=== PATIENT | male | born 1940 | race Caucasian/White ===

== ENCOUNTER 2018-04-17 09:02 | Emergency (ER) | payer MEDICARE, BC, SELFPAY ==
[2018-04-17] VITALS (13 sets, daily range): BP systolic 067–182; BP diastolic 77–91; PULSE 70–99; RESP 16–24; TEMP 36.5; O2SAT 98–100; BMI 23.0
--- NOTE | 2018-04-17 09:05 | ED.CHESTPAIN ---
HPI - Chest Pain General Chief Complaint: Chest Pain Stated Complaint: having a heart problem Time Seen by Provider: 04/17/18 09:05 Source: patient Mode of arrival: ambulatory Limitations: no limitations History of Present Illness HPI narrative: Patient is a 77-year-old male with known coronary artery disease. In February of last year he underwent a coronary artery bypass graft at [facility] in [place]. He states that things went well. He states he did not have a heart attack prior to this. He states that he went right to the surgery after a cardiac catheterization. He is currently on Plavix. He does not have a local assessment nurse practitioner but does have a local primary care doctor. He states that this morning he got up and ate some breakfast. Had some nausea afterwards. He states that since then he has continue to did not feel well. He does have retrosternal chest pain. Not worse with palpation. Or breathing. He states that he thought maybe he was in atrial fibrillation this morning because they told him to watch for these types of symptoms. He called a cardiac nurse who informed him to come to the emergency department. Related Data Allergies Allergy/AdvReac Type Severity Reaction Status Date / Time amlodipine [From [facility]] Allergy Verified 04/17/18 09:21 atenolol Allergy Verified 04/17/18 09:20 hydrochlorothiazide Allergy Verified 04/17/18 09:21 Sulfa (Sulfonamide Allergy Verified 04/17/18 09:21 Antibiotics) Review of Systems Constitutional Reports fatigue, Denies fever(s) and Reports malaise Cardiovascular Reports chest pain, Reports irregular heart rhythm, Reports palpitations and Reports dyspnea Respiratory Reports dyspnea Gastrointestinal Gastrointestinal: Denies abdominal pain, Reports nausea and Denies vomiting Genitourinary Denies dysuria Musculoskeletal Denies myalgias and Denies arthralgias Integumentary/Breasts Denies rash Neurologic Denies behavioral changes Psychiatric Denies behavioral changes Endocrine Reports fatigue and Reports palpitations Hematologic/Lymphatic Comments: On Plavix PFSH Medical History Coronary artery disease (Acute) Diabetes (Acute) Surgical History History of cholecystectomy (Acute) Hx of CABG (Acute) Social History marital status: lives independently: Yes Social History marital status: lives independently: Yes Exam Initial Vital Signs Initial Vital Signs: Vital Signs Temperature 97.7 F 04/17/18 09:07 Pulse Rate 99 H 04/17/18 09:07 Respiratory Rate 24 04/17/18 09:07 Blood Pressure 182/90 H 04/17/18 09:07 Pulse Oximetry 100 04/17/18 09:07 Const General: cooperative, No comfortable, well groomed and ill appearing Orientation: alert, awake and oriented x3 HENMT Head: normal to inspection and normocephalic Chest Other: Well-healed midline surgical scar consistent with his history of CABG Resp Effort & Inspection: tachypneic Auscultation: clear to auscultation bilaterally Cardio Rate: tachycardic Rhythm: regular rhythm Heart Sounds: murmur Pulses: radial pulses present GI Inspection: non-distended Palpation: soft, No firm and No tender Skin Other: Well-healed midline surgical scar also well-healed midline right upper quadrant scar consistent with his history of coronary artery bypass graft and cholecystectomy Neuro General: alert, awake and oriented x3 Extrem General: normal to inspection and capillary refill normal Psych Appearance: grossly normal and well kempt Course Orders Ordered: ED Orders 04/17/18 09:00 B Type Natriuretic Peptide Stat Complete Blood Count AUTO DIFF Stat Comprehensive Metabolic Panel Stat Partial Thromboplastin Time Stat Prothrombin Time INR Stat Troponin I Stat 04/17/18 09:06 XR chest 1V Stat 04/17/18 09:07 EKG-12 Lead Stat 04/17/18 09:37 EKG-12 Lead Stat 04/17/18 10:30 PTT [Partial Thromboplastin Time] Q6H 04/17/18 16:30 PTT [Partial Thromboplastin Time] Q6H 04/17/18 22:30 PTT [Partial Thromboplastin Time] Q6H 04/18/18 04:30 PTT [Partial Thromboplastin Time] Q6H Heparin Sodium (Porcine) (Heparin) 0 unit IV Q6H PRN; Protocol PRN Reason: protocol Sodium Chloride (Normal Saline 0.9%) 1,000 mls @ 150 mls/hr IV CONT DEBRA Last Admin: 04/17/18 09:54 Dose: 150 mls/hr Heparin Sodium/Dextrose (Heparin Drip) 25,000 unit in 500 mls @ 18.507 mls/hr IV CONT DEBRA; Protocol Last Admin: 04/17/18 10:32 Dose: 12 units/kg/hr, 18.507 mls/hr Discontinued Medications Aspirin (Aspirin Chew) 324 mg PO NOW ONE Stop: 04/17/18 09:16 Last Admin: 04/17/18 09:16 Dose: 324 mg Heparin Sodium (Porcine) (Heparin) 4,000 unit IV NOW ONE Stop: 04/17/18 10:20 Last Admin: 04/17/18 10:31 Dose: 4,000 unit Morphine Sulfate (Morphine) 2 mg IV NOW ONE Stop: 04/17/18 09:22 Last Admin: 04/17/18 09:27 Dose: Morphine Sulfate (Morphine) 2 mg IV Q2HR PRN PRN Reason: Pain, Moderate (4-6) Last Admin: 04/17/18 09:29 Dose: 2 mg Nitroglycerin (Nitro-Bid) 1 inch TOP NOW ONE Stop: 04/17/18 09:16 Last Admin: 04/17/18 09:17 Dose: 1 inch Ondansetron HCl (Zofran) 4 mg IV NOW ONE Stop: 04/17/18 09:17 Last Admin: 04/17/18 09:18 Dose: 4 mg Vital Signs - 8 hr 04/17/18 09:07 04/17/18 09:10 04/17/18 09:17 Temperature 97.7 F Pulse Rate 99 H 95 H 92 H Respiratory Rate 24 19 Blood Pressure 182/90 H 167/91 H Blood Pressure [Right Arm] 067/91 H Pulse Oximetry 100 100 04/17/18 09:20 04/17/18 09:30 04/17/18 09:40 Temperature Pulse Rate 90 89 88 Respiratory Rate 20 18 16 Blood Pressure Blood Pressure [Right Arm] 149/86 H 146/80 H 148/80 H Pulse Oximetry 100 100 100 04/17/18 09:50 04/17/18 09:54 04/17/18 10:00 Temperature Pulse Rate 90 84 88 Respiratory Rate 20 16 Blood Pressure 138/77 Blood Pressure [Right Arm] 138/77 138/78 Pulse Oximetry 99 99 MDM - Chest Pain Lab Data Attestation: I reviewed the patient's lab results. Result diagrams: 04/17/18 09:00 04/17/18 09:00 Lab Results 04/17/18 04/17/18 04/17/18 Range/Units 09:00 09:00 09:00 WBC 8.2 (4.5-11.0) X10^3/uL RBC 3.91 L (4.5-5.9) X10^6/uL Hgb 11.7 L (13.5-17.5) g/dL Hct 35.5 L (41-53) % MCV 90.7 (80-100) fL MCH 30.0 (26-34) PG MCHC 33.0 (30-36) % RDW 13.4 (11.6-14.8) % Plt Count 250 (150-400) X10^3/uL Neut % (Auto) 65.7 (50-75) % Lymph % (Auto) 22.6 L (25-40) % [place] % (Auto) 6.8 (3-14) % Eos % (Auto) 4.2 H (2-4) % Baso % (Auto) 0.7 (0-2) % Neut # (Auto) 5400 (6662-6320) /uL Lymph # (Auto) 1800 (3643-2477) /uL [place] # (Auto) 600 (0-900) /uL Eos # (Auto) 300 (0-450) /uL Baso # (Auto) 100 (0-100) /uL PT 11.0 (10.1-12.7) SECONDS INR 1.0 (0.9-1.3) APTT 24 L (26.4-36.2) SECONDS Sodium 137 (137-145) mmol/L Potassium 4.5 (3.4-5.1) mmol/L Chloride 101 (98-107) mmol/L Carbon Dioxide 22 (22-32) mmol/L BUN 36 H (9-20) mg/dL Creatinine 1.00 (0.66-1.25) mg/dL Estimated GFR > 60.0 (>60) mL/min BUN/Creatinine Ratio 36.0 H (6-22) Glucose 312 H (80-110) mg/dL Calcium 9.3 (8.4-10.2) mg/dL Total Bilirubin 0.6 (0.2-1.3) mg/dL AST 27 (17-59) IU/L ALT 23 (21-72) IU/L Alkaline Phosphatase 95 (38-126) U/L Troponin I 0.028 (0.01-0.034) ng/mL B-Natriuretic Peptide 390 H (<100) Total Protein 8.1 (6.3-8.2) g/dL Albumin 4.6 (3.5-5.0) g/dL Globulin 3.5 (1.7-4.1) g/dL Albumin/Globulin Ratio 1.3 (1.0-2.8) Imaging Data Chest x-ray: Radiologist's impression: INDICATIONS: chest pain TECHNIQUE: One view of the chest was acquired. COMPARISON: [facility], CHEST 2 VIEW, 01/14/2010, 10:09. FINDINGS: Surgical changes and devices: Postoperative changes are present related to an interval median sternotomy. Lungs and pleura: There is minimal atelectasis versus scarring at the left lung base, similar to the prior study. No new areas of consolidation are evident. No pleural effusions or pneumothorax. Mediastinum: Mediastinal contours appear normal. Heart size is normal. Bones and chest wall: No suspicious bony lesions. Overlying soft tissues appear unremarkable. IMPRESSION: No acute cardiopulmonary process is evident. Dictated by: Brenton Owens M.D. on 04/17/2018 at 8:39 Approved by: Brenton Owens M.D. on 04/17/2018 at 8:50 ECG Data Attestation: I personally reviewed and interpreted this ECG as follows: Prior ECG tracings: not available for review Interpretation: Sinus rhythm Ventricular rate of 97 Occasional PVC Normal as needed oval Normal QTC ST depression V4 V5 V6 Inverted T-waves 1 in aVL MDM Narrative Medical decision making narrative: Patient just over 1 month out from a multivessel coronary artery bypass graft. Patient EKG today while he was having symptoms showed lateral ST depressions. Symptom free EKG shows resolution of these depressions. He was given an aspirin. He is now currently symptom free. I did start him on heparin. I discussed the case with his cardiothoracic surgeon at [place] Dr. Renee who stated that he would be in agreement with whenever we thought was appropriate for the patient. I did discuss the case with Dr. Vera with Cardiology at [facility] who accepted the patient in transport. I did discuss the transfer with the patient and his . Patient is stable for transport. They expressed understanding and agreement with this plan. Discharge Plan Departure Patient Disposition: [facility] Clinical Impression: ACS (acute coronary syndrome), Hyperglycemia
[2018-04-17] MEDS: ASPIRIN 81 MG TAB 324 MG PO (09:16)
[2018-04-17] MEDS: NITROGLYCERIN OINT 1 INCH/GM OINT...G. TOP (09:17)
[2018-04-17] MEDS: ONDANSETRON 4 MG/2 ML INJ IV (09:18)
[2018-04-17 09:24] LABS: Add Manual Diff / Slide Review NO; Basophils Absolute Auto 100 /uL (0-100); Basophils Percent Auto 0.7 % (0-2); Eosinophils Absolute Auto 300 /uL (0-450); Eosinophils Percent Auto 4.2 % (2-4); Hematocrit 35.5 % (41-53); Hemoglobin 11.7 g/dL (13.5-17.5); Lymphocytes Absolute Auto 1800 /uL (1100-4500); Lymphocytes Percent Auto 22.6 % (25-40); Mean Corpuscular Volume 90.7 fL (80-100); Monocytes Absolute Auto 600 /uL (0-900); Monocytes Percent Auto 6.8 % (3-14); Neutrophils Absolute Auto 5400 /uL (1500-7000); Neutrophils Percent Auto 65.7 % (50-75); Platelet Count 250 X10^3/uL (150-400); Red Blood Cell Count 3.91 X10^6/uL (4.5-5.9); Red Cell Distribution Width 13.4 % (11.6-14.8); White Blood Cell Count 8.2 X10^3/uL (4.5-11.0)
[2018-04-17] MEDS: MORPHINE 2 MG/ML INJ IV (09:29)
[2018-04-17 09:32] LABS: PTT Partial Thromboplastin Tim 24 SECONDS (26.4-36.2)
[2018-04-17 09:40] LABS: Alanine Aminotransferase 23 IU/L (21-72); Albumin 4.6 g/dL (3.5-5.0); Albumin Globulin Ratio 1.3 (1.0-2.8); Alkaline Phosphatase 95 U/L (38-126); Aspartate Aminotransferase 27 IU/L (17-59); Bilirubin Total 0.6 mg/dL (0.2-1.3); Blood Urea Nitrogen 36 mg/dL (9-20); Calcium 9.3 mg/dL (8.4-10.2); Carbon Dioxide 22 mmol/L (22-32); Chloride 101 mmol/L (98-107); Estimated Glomerular Filt Rate > 60.0 mL/min (>60); Globulin 3.5 g/dL (1.7-4.1); Glucose 312 mg/dL (80-110); HEMOLYSIS 22 (0-50); Potassium 4.5 mmol/L (3.4-5.1); Sodium 137 mmol/L (137-145); Total Protein 8.1 g/dL (6.3-8.2)
[2018-04-17 09:46] LABS: B Type Natriuretic Peptide 390 (<100)
[2018-04-17 09:51] LABS: Troponin I 0.028 ng/mL (0.01-0.034)
[2018-04-17] MEDS: SODIUM CHLORIDE 0.9% 1,000 ML 150 ML IV (09:54)
[2018-04-17] MEDS: HEPARIN 5,000 UNIT/ML VIAL 4000 UNIT IV (10:31)
[2018-04-17] MEDS: HEPARIN DRIP 25,000 UNIT/500 ML IV.SOLN 18.507 UNIT IV (10:32)
== END 2018-04-17 13:23 | disposition short-term general hospital (02) ==
PROVIDERS: Emergency Provider Emergency Medicine; PCP Family Medicine
DX: I24.9 Acute ischemic heart disease, unspecified (principal); R73.9 Hyperglycemia, unspecified
CPT/HCPCS: 36591; 71045; 80053; 82962; 83880; 84484; 85025; 85610; 85730; 93005; 93041; 96361; 96365; 96366; 96375; 99285; J1644; J2270; J2405

== ENCOUNTER 2018-04-20 23:58 | Emergency (ER) | payer MEDICARE, BC, SELFPAY ==
[2018-04-21] VITALS: BP 157/73; PULSE 80; RESP 19; TEMP 36.4; O2SAT 100
--- NOTE | 2018-04-21 00:10 | DI.RAD.S_ITS ---
PROCEDURE: XR CHEST 1V INDICATIONS: chest pain TECHNIQUE: One view of the chest was acquired. COMPARISON: [facility], CR, XR CHEST 1V, 04/17/2018, 9:32. FINDINGS: Surgical changes and devices: Sternotomy wires and CABG clips Lungs and pleura: Lungs are clear. No pleural effusions or pneumothorax. Mediastinum: Mediastinal contours appear normal. Heart size is normal. Bones and chest wall: No suspicious bony lesions. Overlying soft tissues appear unremarkable. IMPRESSION: No acute disease Dictated by: Yuriy Hernandez M.D. on 04/21/2018 at 7:58 Approved by: Yuriy Hernandez M.D. on 04/21/2018 at 8:01
--- NOTE | 2018-04-21 00:20 | ED.CHESTPAIN ---
HPI - Chest Pain General Chief Complaint: Chest Pain Stated Complaint: CARDIAC DISCOMFORT Time Seen by Provider: 04/21/18 00:09 Source: patient and old records reviewed Mode of arrival: ambulatory Limitations: no limitations History of Present Illness HPI narrative: Patient is a 77-year-old male with known coronary artery disease recently had a CABG three-way bypass February 2018 at [place] presenting with chest pain. He says he was resting in his chair when he had sudden chest discomfort radiating down his left arm and felt nauseous. This is the same feeling that he had 3 days ago when he also came to the ER, at that point he was sent to [facility]. He had a nuclear stress test there was a part of his inferior wall which they or slightly concerned about. They thought his pain was due to his elevated blood pressure. If his blood pressure has a systolic of 104-105 he generally has no pain. He was started on Imdur or. He was not given nitroglycerin at home. This evening this pain was just as intense as it was if not more. Constant in nature denies any shortness of breath. MD complaint: chest pain Onset (ago): minute(s) Duration: constant Onset: during rest Pain location: left chest Severity: severe Severity scale (1-10): 10 Quality: heaviness and sharp Pain radiation: LUE Relieving factors: nitroglycerin Exacerbating factors: nothing Context: recent surgery (CABG 3 vessel) and new medications (Imdur) Associated symptoms: nausea Related Data Home Medications Medication Instructions Recorded Confirmed aspirin 162 mg PO DAILY 04/17/18 04/17/18 clopidogrel 75 mg PO DAILY 04/17/18 04/17/18 glimepiride 4 mg PO BEDTIME PRN 04/17/18 04/17/18 hydrochlorothiazide 25 mg PO DAILY 04/17/18 04/17/18 insulin lispro [Humalog KwikPen 1 dose SUBCUT PRN PRN 04/17/18 04/17/18 Insulin] lisinopril 40 mg PO DAILY 04/17/18 04/17/18 magnesium oxide 200 mg PO DAILY 04/17/18 04/17/18 metformin 1,000 mg PO TID 04/17/18 04/17/18 simvastatin 20 mg PO DAILY 04/17/18 04/17/18 Allergies Allergy/AdvReac Type Severity Reaction Status Date / Time amlodipine [From [facility]] Allergy Verified 04/21/18 00:11 atenolol Allergy Verified 04/21/18 00:11 hydrochlorothiazide Allergy Verified 04/21/18 00:11 Sulfa (Sulfonamide Allergy Verified 04/21/18 00:11 Antibiotics) Review of Systems Review of Systems GENERAL: Denies chills, fatigue, malaise, fever, sweats, travel HEENT: Denies sinus pain, ear pain, sore throat, difficulty swallowing, neck pain RESPIRATORY: Denies dyspnea, cough, wheezing, hemoptysis, sputum. CARDIOVASCULAR: See HPI GASTROINTESTINAL: Denies nausea, vomiting, abdominal pain, diarrhea, constipation, melena. : Denies dysuria, frequency, incontinence, hematuria, urinary retention, flank pain. MUSCULOSKELETAL: Denies weakness, joint pain, or bony pain SKIN: No rash, no erythema, no pruritus NEUROLOGIC: Denies weakness, dizziness, headache, numbness, change in speech, confusion PSYCHIATRIC: No concerning psychosocial issues. 12 point review of systems is negative except for those stated above and HPI [facility] Medical History Coronary artery disease (Acute) Diabetes (Acute) Hyperlipidemia (Acute) Hypertension (Acute) Surgical History History of cholecystectomy (Acute) Hx of CABG (Acute) Social History marital status: lives independently: Yes Social History marital status: lives independently: Yes Exam Initial Vital Signs Initial Vital Signs: Vital Signs Temperature 97.6 F 04/21/18 00:00 Pulse Rate 80 04/21/18 00:00 Respiratory Rate 19 04/21/18 00:00 Blood Pressure 157/73 H 04/21/18 00:00 Pulse Oximetry 100 04/21/18 00:00 GENERAL: Elderly male alert and oriented x4 appears in some pain HEENT: Head atraumatic,EOMI, pupils reactive, neck is supple CARDIOVASCULAR: Regular rate and rhythm without murmurs, rubs or gallops. Vertical scar noted on sternum RESPIRATORY: Breath sounds equal bilaterally, no wheezes rales or rhonchi. ABDOMEN: Soft, nontender. Normoactive bowel sounds all 4 quadrants. No guarding or rebound. EXTREMITIES: Normal range of motion, no clubbing or edema. Neurovascularly intact NEUROLOGICAL: Alert and oriented x4.Normal gait and speech. Cranial nerves II through XII grossly intact. SKIN: Warm, dry, no laceration, no petechiae, no rashes or lesions. Course Orders Ordered: ED Orders 04/21/18 00:08 B Type Natriuretic Peptide Stat Complete Blood Count AUTO DIFF Stat Comprehensive Metabolic Panel Stat Lipase Stat Partial Thromboplastin Time Stat Prothrombin Time INR Stat Troponin & CK Cardiac Panel Stat 04/21/18 00:10 XR chest 1V Stat 04/21/18 01:19 EKG-12 Lead Stat Discontinued Medications Heparin Sodium (Porcine) (Heparin) 6,100 unit 80 unit/kg (6100 unit) IV NOW ONE Stop: 04/21/18 01:24 Last Admin: 04/21/18 01:34 Dose: 5,000 unit Heparin Sodium/Dextrose (Heparin Drip) 25,000 unit in 500 mls @ 18.289 mls/hr IV CONT DEBRA; Protocol Last Admin: 04/21/18 01:36 Dose: 12 units/kg/hr, 18.289 mls/hr Nitroglycerin (Nitrostat) 0.4 mg SL [id number] PRN PRN Reason: Chest Pain Last Admin: 04/21/18 00:41 Dose: 0.4 mg Vital Signs - 8 hr 04/21/18 00:00 04/21/18 00:35 04/21/18 01:20 Temperature 97.6 F Pulse Rate 80 88 86 Respiratory Rate 19 16 16 Blood Pressure 157/73 H Blood Pressure [Left Arm] 104/61 102/51 L Pulse Oximetry 100 99 97 04/21/18 02:19 04/21/18 03:45 Temperature Pulse Rate 84 84 Respiratory Rate 16 16 Blood Pressure 102/57 L Blood Pressure [Left Arm] Pulse Oximetry 99 98 MDM - Chest Pain Medical Records Data Attestation: I reviewed the patient's medical records. Records from [facility] are reviewed no discharge for consultation or progress note unfortunately. Blood work a nuclear stress test available. Lab Data Attestation: I reviewed the patient's lab results. Result diagrams: 04/21/18 00:08 04/21/18 00:08 Lab Results 0204/21/18 04/21/18 Range/Units 00:08 00:08 00:08 WBC 9.3 (4.5-11.0) X10^3/uL RBC 3.74 L (4.5-5.9) X10^6/uL Hgb 11.2 L (13.5-17.5) g/dL Hct 33.4 L (41-53) % MCV 89.4 (80-100) fL MCH 30.0 (26-34) PG MCHC 33.6 (30-36) % RDW 13.7 (11.6-14.8) % Plt Count 211 (150-400) X10^3/uL Neut % (Auto) 74.7 (50-75) % Lymph % (Auto) 16.4 L (25-40) % [place] % (Auto) 5.8 (3-14) % Eos % (Auto) 2.3 (2-4) % Baso % (Auto) 0.8 (0-2) % Neut # (Auto) 6900 (6613-2911) /uL Lymph # (Auto) 1500 (9359-0416) /uL [place] # (Auto) 500 (0-900) /uL Eos # (Auto) 200 (0-450) /uL Baso # (Auto) 100 (0-100) /uL PT 11.2 (10.1-12.7) SECONDS INR 1.0 (0.9-1.3) APTT 28 D (26.4-36.2) SECONDS Sodium (137-145) mmol/L Potassium (3.4-5.1) mmol/L Chloride (98-107) mmol/L Carbon Dioxide (22-32) mmol/L BUN (9-20) mg/dL Creatinine (0.66-1.25) mg/dL Estimated GFR (>60) mL/min BUN/Creatinine Ratio (6-22) Glucose (80-110) mg/dL Calcium (8.4-10.2) mg/dL Total Bilirubin (0.2-1.3) mg/dL AST (17-59) IU/L ALT (21-72) IU/L Alkaline Phosphatase (38-126) U/L Total Creatine Kinase (55-170) U/L CK-MB (CK-2) CK-MB (CK-2) Rel Index Troponin I (0.01-0.034) ng/mL B-Natriuretic Peptide 403 H (<100) Total Protein (6.3-8.2) g/dL Albumin (3.5-5.0) g/dL Globulin (1.7-4.1) g/dL Albumin/Globulin Ratio (1.0-2.8) Lipase (23-300) U/L 04/21/18 Range/Units 00:08 WBC (4.5-11.0) X10^3/uL RBC (4.5-5.9) X10^6/uL Hgb (13.5-17.5) g/dL Hct (41-53) % MCV (80-100) fL MCH (26-34) PG MCHC (30-36) % RDW (11.6-14.8) % Plt Count (150-400) X10^3/uL Neut % (Auto) (50-75) % Lymph % (Auto) (25-40) % [place] % (Auto) (3-14) % Eos % (Auto) (2-4) % Baso % (Auto) (0-2) % Neut # (Auto) (0390-0148) /uL Lymph # (Auto) (4261-9850) /uL [place] # (Auto) (0-900) /uL Eos # (Auto) (0-450) /uL Baso # (Auto) (0-100) /uL PT (10.1-12.7) SECONDS INR (0.9-1.3) APTT (26.4-36.2) SECONDS Sodium 137 (137-145) mmol/L Potassium 5.3 H (3.4-5.1) mmol/L Chloride 100 (98-107) mmol/L Carbon Dioxide 20 L (22-32) mmol/L BUN 61 H (9-20) mg/dL Creatinine 4.30 H (0.66-1.25) mg/dL Estimated GFR 13.4 L (>60) mL/min BUN/Creatinine Ratio 14.2 (6-22) Glucose 202 H D (80-110) mg/dL Calcium 8.9 (8.4-10.2) mg/dL Total Bilirubin 0.5 (0.2-1.3) mg/dL AST 33 (17-59) IU/L ALT 27 (21-72) IU/L Alkaline Phosphatase 86 (38-126) U/L Total Creatine Kinase 63 (55-170) U/L CK-MB (CK-2) TNP CK-MB (CK-2) Rel Index TNP Troponin I 2.860 H* (0.01-0.034) ng/mL B-Natriuretic Peptide (<100) Total Protein 7.8 (6.3-8.2) g/dL Albumin 4.4 (3.5-5.0) g/dL Globulin 3.4 (1.7-4.1) g/dL Albumin/Globulin Ratio 1.3 (1.0-2.8) Lipase 110 (23-300) U/L Imaging Data Chest x-ray: Attestation: I personally reviewed and interpreted this imaging study as follows: My impression: Postsurgical changes, no acute cardiopulmonary process ECG Data Attestation: I personally reviewed and interpreted this ECG as follows: Prior ECG tracings: available for review Interpretation: EKG 1.: Normal sinus rhythm rate 83 T-wave inversions actually improved in V [address] elevations PVC noted EKG 2. Evening T-wave inversions in lead 3 normal sinus rhythm rate 90 PVC noted T-wave inversions again noted this is similar to previous EKG 04/17/2018 Core Measures AMI core measures followed: Yes MDM Narrative Medical decision making narrative: The patient was given nitroglycerin which decreased his pressure to 104 and his pain decreased significantly. Troponin returned as positive, significantly more elevated than previously. His troponin from records at [facility] on 04/17/2018 0.39 no record of further testing. Long discussion with family they are adamant about flying immediately to [facility]. I explained that he is actively having a heart attack this is not a very deal decision. They finally are agreeable to go to the nearest hospital. They refuse to go back to [facility]. 2:30 a.m. [facility] Dr. Rojas, hospitalist has been updated on patient's symptoms test results and current treatments. He happily accepts but requests that high speak to Cardiology. 2:[address] Duvall, cardiology has been updated on patient's symptoms and test results and are happy to consult Patient and are agreeable for transport. Patient received nitroglycerin he has already taken his Plavix and other medication today. Critical Care Time Critical Care Time: Yes Total Critical Care Time: 30 Attestation: The patient satisfied the definition of criticality in that they had a high probability of imminent deterioration of their conditon. Critical care time includes time spent at the bedside, plus where appropriate: gathering information from family, EMS, old records, caregivers; interpretation of test results; and time spent discussing patient with other physicians Discharge Plan Departure Patient Disposition: [facility] Clinical Impression: Non-ST elevated myocardial infarction Discharge Date/Time: 04/21/18 04:00 Interventions: ED Discharge Assessment Last Done: 04/21/18 03:45 Instructions: DI for Pulmonary Embolism, DI for Angina, DI for Atypical Chest Pain, DI for Chest Pain, DI for Palpitations, DI for Chest Pain -- Child Prescriptions: No Action clopidogrel 75 mg Tablet 75 mg PO DAILY RF: 0 aspirin 81 mg Tablet,Delayed Release (Dr/Ec) 162 mg PO DAILY RF: 0 simvastatin 20 mg Tablet 20 mg PO DAILY RF: 0 metformin 1,000 mg Tablet 1,000 mg PO TID RF: 0 glimepiride 4 mg Tablet 4 mg PO BEDTIME PRN (Reason: personal sliding scale) RF: 0 hydrochlorothiazide 25 mg Tablet 25 mg PO DAILY RF: 0 lisinopril 40 mg Tablet 40 mg PO DAILY RF: 0 insulin lispro [Humalog KwikPen Insulin] 100 unit/mL Insulin Pen 1 dose subcut PRN PRN (Reason: sliding scale) RF: 0 magnesium oxide 400 mg magnesium Tablet 200 mg PO DAILY RF: 0 Referrals: Edward Pedro MD [Primary Care Provider] -
[2018-04-21 00:27] LABS: Add Manual Diff / Slide Review NO; Basophils Absolute Auto 100 /uL (0-100); Basophils Percent Auto 0.8 % (0-2); Eosinophils Absolute Auto 200 /uL (0-450); Eosinophils Percent Auto 2.3 % (2-4); Hematocrit 33.4 % (41-53); Hemoglobin 11.2 g/dL (13.5-17.5); Lymphocytes Absolute Auto 1500 /uL (1100-4500); Lymphocytes Percent Auto 16.4 % (25-40); Mean Corpuscular HGB Conc 33.6 % (30-36); Mean Corpuscular Volume 89.4 fL (80-100); Monocytes Absolute Auto 500 /uL (0-900); Monocytes Percent Auto 5.8 % (3-14); Neutrophils Absolute Auto 6900 /uL (1500-7000); Neutrophils Percent Auto 74.7 % (50-75); Platelet Count 211 X10^3/uL (150-400); Red Blood Cell Count 3.74 X10^6/uL (4.5-5.9); Red Cell Distribution Width 13.7 % (11.6-14.8); White Blood Cell Count 9.3 X10^3/uL (4.5-11.0)
[2018-04-21 00:34] LABS: Prothrombin Time 11.2 SECONDS (10.1-12.7)
[2018-04-21 00:35] VITALS: BP 104/61; PULSE 88; RESP 16; O2SAT 99
[2018-04-21 00:37] LABS: PTT Partial Thromboplastin Tim 28 SECONDS (26.4-36.2)
[2018-04-21 00:40] LABS: Alanine Aminotransferase 27 IU/L (21-72); Albumin 4.4 g/dL (3.5-5.0); Albumin Globulin Ratio 1.3 (1.0-2.8); Alkaline Phosphatase 86 U/L (38-126); Aspartate Aminotransferase 33 IU/L (17-59); BUN Creatinine Ratio 14.2 (6-22); Bilirubin Total 0.5 mg/dL (0.2-1.3); Blood Urea Nitrogen 61 mg/dL (9-20); Calcium 8.9 mg/dL (8.4-10.2); Carbon Dioxide 20 mmol/L (22-32); Chloride 100 mmol/L (98-107); Creatine Kinase 63 U/L (55-170); Estimated Glomerular Filt Rate 13.4 mL/min (>60); Globulin 3.4 g/dL (1.7-4.1); Glucose 202 mg/dL (80-110); HEMOLYSIS < 15 (0-50); Lipase 110 U/L (23-300); Potassium 5.3 mmol/L (3.4-5.1); Sodium 137 mmol/L (137-145); Total Protein 7.8 g/dL (6.3-8.2)
[2018-04-21] MEDS: NITROGLYCERIN 0.4 MG SL TAB SL (00:41)
--- NOTE | 2018-04-21 00:42 | PC.NURSE ---
First nitro sl given at 0026.at 0031 pain was a number 2 at best he said,down from a number 10.His b/p mafter was 104/61.
[2018-04-21 00:53] LABS: B Type Natriuretic Peptide 403 (<100)
[2018-04-21 01:20] VITALS: BP 102/51; PULSE 86; RESP 16; O2SAT 97
[2018-04-21] MEDS: HEPARIN 5,000 UNIT/ML VIAL 6100 UNIT IV (01:34)
[2018-04-21] MEDS: HEPARIN DRIP 25,000 UNIT/500 ML IV.SOLN 18.289 UNIT IV (01:36)
--- NOTE | 2018-04-21 01:56 | ED_ITS ---
HPI - Chest Pain General Chief Complaint: Chest Pain Stated Complaint: CARDIAC DISCOMFORT Time Seen by Provider: 04/21/18 00:09 Source: patient and old records reviewed Mode of arrival: ambulatory Limitations: no limitations History of Present Illness HPI narrative: Patient is a 77-year-old male with known coronary artery disease recently had a CABG three-way bypass February 2018 at [place] presenting with chest pain. He says he was resting in his chair when he had sudden chest discomfort radiating down his left arm and felt nauseous. This is the same feeling that he had 3 days ago when he also came to the ER, at that point he was sent to [facility]. He had a nuclear stress test there was a part of his inferior wall which they or slightly concerned about. They thought his pain was due to his elevated blood pressure. If his blood pressure has a systolic of 104-105 he generally has no pain. He was started on Imdur or. He was not given nitroglycerin at home. This evening this pain was just as intense as it was if not more. Constant in nature denies any shortness of breath. MD complaint: chest pain Onset (ago): minute(s) Duration: constant Onset: during rest Pain location: left chest Severity: severe Severity scale (1-10): 10 Quality: heaviness and sharp Pain radiation: LUE Relieving factors: nitroglycerin Exacerbating factors: nothing Context: recent surgery (CABG 3 vessel) and new medications (Imdur) Associated symptoms: nausea Related Data Home Medications Medication Instructions Recorded Confirmed aspirin 162 mg PO DAILY 04/17/18 04/17/18 clopidogrel 75 mg PO DAILY 04/17/18 04/17/18 glimepiride 4 mg PO BEDTIME PRN 04/17/18 04/17/18 hydrochlorothiazide 25 mg PO DAILY 04/17/18 04/17/18 insulin lispro [Humalog KwikPen 1 dose SUBCUT PRN PRN 04/17/18 04/17/18 Insulin] lisinopril 40 mg PO DAILY 04/17/18 04/17/18 magnesium oxide 200 mg PO DAILY 04/17/18 04/17/18 metformin 1,000 mg PO TID 04/17/18 04/17/18 simvastatin 20 mg PO DAILY 04/17/18 04/17/18 Allergies Allergy/AdvReac Type Severity Reaction Status Date / Time amlodipine [From [facility]] Allergy Verified 04/21/18 00:11 atenolol Allergy Verified 04/21/18 00:11 hydrochlorothiazide Allergy Verified 04/21/18 00:11 Sulfa (Sulfonamide Allergy Verified 04/21/18 00:11 Antibiotics) Review of Systems Review of Systems GENERAL: Denies chills, fatigue, malaise, fever, sweats, travel HEENT: Denies sinus pain, ear pain, sore throat, difficulty swallowing, neck pain RESPIRATORY: Denies dyspnea, cough, wheezing, hemoptysis, sputum. CARDIOVASCULAR: See HPI GASTROINTESTINAL: Denies nausea, vomiting, abdominal pain, diarrhea, constipation, melena. : Denies dysuria, frequency, incontinence, hematuria, urinary retention, flank pain. MUSCULOSKELETAL: Denies weakness, joint pain, or bony pain SKIN: No rash, no erythema, no pruritus NEUROLOGIC: Denies weakness, dizziness, headache, numbness, change in speech, confusion PSYCHIATRIC: No concerning psychosocial issues. 12 point review of systems is negative except for those stated above and HPI [facility] Medical History Coronary artery disease (Acute) Diabetes (Acute) Hyperlipidemia (Acute) Hypertension (Acute) Surgical History History of cholecystectomy (Acute) Hx of CABG (Acute) Social History marital status: lives independently: Yes Social History marital status: lives independently: Yes Exam Initial Vital Signs Initial Vital Signs: Vital Signs Temperature 97.6 F 04/21/18 00:00 Pulse Rate 80 04/21/18 00:00 Respiratory Rate 19 04/21/18 00:00 Blood Pressure 157/73 H 04/21/18 00:00 Pulse Oximetry 100 04/21/18 00:00 GENERAL: Elderly male alert and oriented x4 appears in some pain HEENT: Head atraumatic,EOMI, pupils reactive, neck is supple CARDIOVASCULAR: Regular rate and rhythm without murmurs, rubs or gallops. Vertical scar noted on sternum RESPIRATORY: Breath sounds equal bilaterally, no wheezes rales or rhonchi. ABDOMEN: Soft, nontender. Normoactive bowel sounds all 4 quadrants. No guarding or rebound. EXTREMITIES: Normal range of motion, no clubbing or edema. Neurovascularly intact NEUROLOGICAL: Alert and oriented x4.Normal gait and speech. Cranial nerves II through XII grossly intact. SKIN: Warm, dry, no laceration, no petechiae, no rashes or lesions. Course Orders Ordered: ED Orders 04/21/18 00:08 B Type Natriuretic Peptide Stat Complete Blood Count AUTO DIFF Stat Comprehensive Metabolic Panel Stat Lipase Stat Partial Thromboplastin Time Stat Prothrombin Time INR Stat Troponin & CK Cardiac Panel Stat 04/21/18 00:10 XR chest 1V Stat 04/21/18 01:19 EKG-12 Lead Stat Discontinued Medications Heparin Sodium (Porcine) (Heparin) 6,100 unit 80 unit/kg (6100 unit) IV NOW ONE Stop: 04/21/18 01:24 Last Admin: 04/21/18 01:34 Dose: 5,000 unit Heparin Sodium/Dextrose (Heparin Drip) 25,000 unit in 500 mls @ 18.289 mls/hr IV CONT DEBRA; Protocol Last Admin: 04/21/18 01:36 Dose: 12 units/kg/hr, 18.289 mls/hr Nitroglycerin (Nitrostat) 0.4 mg SL [id number] PRN PRN Reason: Chest Pain Last Admin: 04/21/18 00:41 Dose: 0.4 mg Vital Signs - 8 hr 04/21/18 00:00 04/21/18 00:35 04/21/18 01:20 Temperature 97.6 F Pulse Rate 80 88 86 Respiratory Rate 19 16 16 Blood Pressure 157/73 H Blood Pressure [Left Arm] 104/61 102/51 L Pulse Oximetry 100 99 97 04/21/18 02:19 04/21/18 03:45 Temperature Pulse Rate 84 84 Respiratory Rate 16 16 Blood Pressure 102/57 L Blood Pressure [Left Arm] Pulse Oximetry 99 98 MDM - Chest Pain Medical Records Data Attestation: I reviewed the patient's medical records. Records from [place] are reviewed no discharge for consultation or progress note unfortunately. Blood work a nuclear stress test available. Lab Data Attestation: I reviewed the patient's lab results. Result diagrams: 04/21/18 00:08 04/21/18 00:08 Lab Results 0204/21/18 04/21/18 Range/Units 00:08 00:08 00:08 WBC 9.3 (4.5-11.0) X10^3/uL RBC 3.74 L (4.5-5.9) X10^6/uL Hgb 11.2 L (13.5-17.5) g/dL Hct 33.4 L (41-53) % MCV 89.4 (80-100) fL MCH 30.0 (26-34) PG MCHC 33.6 (30-36) % RDW 13.7 (11.6-14.8) % Plt Count 211 (150-400) X10^3/uL Neut % (Auto) 74.7 (50-75) % Lymph % (Auto) 16.4 L (25-40) % Daggett % (Auto) 5.8 (3-14) % Eos % (Auto) 2.3 (2-4) % Baso % (Auto) 0.8 (0-2) % Neut # (Auto) 6900 (3679-8582) /uL Lymph # (Auto) 1500 (8071-2612) /uL Daggett # (Auto) 500 (0-900) /uL Eos # (Auto) 200 (0-450) /uL Baso # (Auto) 100 (0-100) /uL PT 11.2 (10.1-12.7) SECONDS INR 1.0 (0.9-1.3) APTT 28 D (26.4-36.2) SECONDS Sodium (137-145) mmol/L Potassium (3.4-5.1) mmol/L Chloride (98-107) mmol/L Carbon Dioxide (22-32) mmol/L BUN (9-20) mg/dL Creatinine (0.66-1.25) mg/dL Estimated GFR (>60) mL/min BUN/Creatinine Ratio (6-22) Glucose (80-110) mg/dL Calcium (8.4-10.2) mg/dL Total Bilirubin (0.2-1.3) mg/dL AST (17-59) IU/L ALT (21-72) IU/L Alkaline Phosphatase (38-126) U/L Total Creatine Kinase (55-170) U/L CK-MB (CK-2) CK-MB (CK-2) Rel Index Troponin I (0.01-0.034) ng/mL B-Natriuretic Peptide 403 H (<100) Total Protein (6.3-8.2) g/dL Albumin (3.5-5.0) g/dL Globulin (1.7-4.1) g/dL Albumin/Globulin Ratio (1.0-2.8) Lipase (23-300) U/L 04/21/18 Range/Units 00:08 WBC (4.5-11.0) X10^3/uL RBC (4.5-5.9) X10^6/uL Hgb (13.5-17.5) g/dL Hct (41-53) % MCV (80-100) fL MCH (26-34) PG MCHC (30-36) % RDW (11.6-14.8) % Plt Count (150-400) X10^3/uL Neut % (Auto) (50-75) % Lymph % (Auto) (25-40) % Daggett % (Auto) (3-14) % Eos % (Auto) (2-4) % Baso % (Auto) (0-2) % Neut # (Auto) (1264-8617) /uL Lymph # (Auto) (5936-3942) /uL Daggett # (Auto) (0-900) /uL Eos # (Auto) (0-450) /uL Baso # (Auto) (0-100) /uL PT (10.1-12.7) SECONDS INR (0.9-1.3) APTT (26.4-36.2) SECONDS Sodium 137 (137-145) mmol/L Potassium 5.3 H (3.4-5.1) mmol/L Chloride 100 (98-107) mmol/L Carbon Dioxide 20 L (22-32) mmol/L BUN 61 H (9-20) mg/dL Creatinine 4.30 H (0.66-1.25) mg/dL Estimated GFR 13.4 L (>60) mL/min BUN/Creatinine Ratio 14.2 (6-22) Glucose 202 H D (80-110) mg/dL Calcium 8.9 (8.4-10.2) mg/dL Total Bilirubin 0.5 (0.2-1.3) mg/dL AST 33 (17-59) IU/L ALT 27 (21-72) IU/L Alkaline Phosphatase 86 (38-126) U/L Total Creatine Kinase 63 (55-170) U/L CK-MB (CK-2) TNP CK-MB (CK-2) Rel Index TNP Troponin I 2.860 H* (0.01-0.034) ng/mL B-Natriuretic Peptide (<100) Total Protein 7.8 (6.3-8.2) g/dL Albumin 4.4 (3.5-5.0) g/dL Globulin 3.4 (1.7-4.1) g/dL Albumin/Globulin Ratio 1.3 (1.0-2.8) Lipase 110 (23-300) U/L Imaging Data Chest x-ray: Attestation: I personally reviewed and interpreted this imaging study as follows: My impression: Postsurgical changes, no acute cardiopulmonary process ECG Data Attestation: I personally reviewed and interpreted this ECG as follows: Prior ECG tracings: available for review Interpretation: EKG 1.: Normal sinus rhythm rate 83 T-wave inversions actually improved in V [address] elevations PVC noted EKG 2. Evening T-wave inversions in lead 3 normal sinus rhythm rate 90 PVC noted T-wave inversions again noted this is similar to previous EKG 04/17/2018 Core Measures AMI core measures followed: Yes MDM Narrative Medical decision making narrative: The patient was given nitroglycerin which decreased his pressure to 104 and his pain decreased significantly. Troponin returned as positive, significantly more elevated than previously. His troponin from records at [place] on 04/17/2018 0.39 no record of further testing. Long discussion with family they are adamant about flying immediately to [facility]. I explained that he is actively having a heart attack this is not a very deal decision. They finally are agreeable to go to the nearest hospital. They refuse to go back to [place]. 2:[address] [facility] [address] Rojas, hospitalist has been updated on patient's symptoms test results and current treatments. He happily accepts but requests that high speak to Cardiology. 2:[address] Duvall, cardiology has been updated on patient's symptoms and test results and are happy to consult Patient and are agreeable for transport. Patient received nitroglycerin he has already taken his Plavix and other medication today. Critical Care Time Critical Care Time: Yes Total Critical Care Time: 30 Attestation: The patient satisfied the definition of criticality in that they had a high probability of imminent deterioration of their conditon. Critical care time includes time spent at the bedside, plus where appropriate: gathering information from family, EMS, old records, caregivers; interpretation of test results; and time spent discussing patient with other physicians Discharge Plan Departure Patient Disposition: [facility] Clinical Impression: Non-ST elevated myocardial infarction Discharge Date/Time: 04/21/18 04:00 Interventions: ED Discharge Assessment Last Done: 04/21/18 03:45 Instructions: DI for Pulmonary Embolism, DI for Angina, DI for Atypical Chest Pain, DI for Chest Pain, DI for Palpitations, DI for Chest Pain -- Child Prescriptions: No Action clopidogrel 75 mg Tablet 75 mg PO DAILY RF: 0 aspirin 81 mg Tablet,Delayed Release (Dr/Ec) 162 mg PO DAILY RF: 0 simvastatin 20 mg Tablet 20 mg PO DAILY RF: 0 metformin 1,000 mg Tablet 1,000 mg PO TID RF: 0 glimepiride 4 mg Tablet 4 mg PO BEDTIME PRN (Reason: personal sliding scale) RF: 0 hydrochlorothiazide 25 mg Tablet 25 mg PO DAILY RF: 0 lisinopril 40 mg Tablet 40 mg PO DAILY RF: 0 insulin lispro [Humalog KwikPen Insulin] 100 unit/mL Insulin Pen 1 dose subcut PRN PRN (Reason: sliding scale) RF: 0 magnesium oxide 400 mg magnesium Tablet 200 mg PO DAILY RF: 0 Referrals: Edward Pedro MD [Primary Care Provider] -
[2018-04-21 02:19] VITALS: PULSE 84; RESP 16; O2SAT 99
[2018-04-21 03:45] VITALS: BP 102/57; PULSE 84; RESP 16; O2SAT 98
--- NOTE | 2018-05-30 19:48 | PC.NURSE ---
Late entry,Heparin gtt was infusing at same rate when transferred by [facility] at 0345AM on 04/21/18.
== END 2018-04-21 04:00 | disposition short-term general hospital (02) ==
PROVIDERS: Emergency Provider Emergency Medicine; PCP Family Medicine
DX: I21.4 Non-ST elevation (NSTEMI) myocardial infarction (principal)
CPT/HCPCS: 36591; 71045; 80053; 82550; 83690; 83880; 84484; 85025; 85610; 85730; 93005; 96365; 96366; 99283; 99285; J1644

== ENCOUNTER 2018-12-07 08:30 | Outpatient (RCR) | payer MEDICARE, BC, SELFPAY | END 2018-12-08 11:24 | disposition home or self-care (01) | LOC: CAR 08:30 | PROVIDERS: PCP Family Medicine; Visit Provider Family Medicine | DX: I21.3 ST elevation (STEMI) myocardial infarction of unspecified site (principal) | CPT/HCPCS: 93798 ==